=== PATIENT | female | born 1960 | race Caucasian/White ===

== ENCOUNTER → 2017-10-09 10:41 | Outpatient (CLI) | payer OTHER, SELFPAY ==
[2017-10-09 10:50] LABS: Lyme Ab Screen Interpretation REF LAB
[2017-10-09 12:07] LABS: Rheumatoid Factor < 10.0 IU/mL (<15)
[2017-10-09 12:11] LABS: Absolute Lymphocyte Count 2.17 X10^3/ul (0.83-4.51); Absolute Neutrophil Count 2.5 X10^3/uL (2.0-7.7); Basophil# 0.02 X10^3/uL; Basophil% 0.4 % (0-1); Eosinophil# 0.09 X10^3/uL; Eosinophils% 1.8 % (0-5); Hematocrit 44.4 % (37-47); Hemoglobin 14.8 g/dl (12.0-15.0); Lymphocyte # 2.17 X10^3/ul (4.0); Lymphocyte % 42.7 % (19-41); Mean Corp Hgb Conc 33.3 g/gl (32-36); Mean Corpuscular Hgb 28.4 pg (27.0-32.0); Mean Corpuscular Volume 85.2 fL (81-99); Mean Platelet Vol. 10.2 fl (6.2-12.0); Monocyte# 0.29 X10^3/uL; Monocyte% 5.7 % (0-10); Neutrophil % 49.2 % (47-70); Platelet Count 250 K/mm3 (150-450); RBC Distribution Width CV 13.1 % (11.6-14.6); Red Blood Count 5.21 M/mm3 (4.2-5.4); White Blood Count 5.1 K/mm3 (4.4-11.0)
[2017-10-09 12:12] LABS: Erythrocyte Sedimentation Rate 15 mm/hr (0-30); POSITIVE COUNT NO; POSITIVE DIFFERENTIAL NO; POSITIVE MORPHOLOGY NO
[2017-10-10 15:26] LABS: ANTINUCLEAR ANTIBODIES DIRECT Negative (Negative); Lyme Scn Total Ab w/Rflx <0.91 ISR (0.00-0.90)
== END ==
PROVIDERS: Family Provider Family Medicine; PCP Family Medicine; Visit Provider Orthopaedic Surgery
DX: M79.89 Other specified soft tissue disorders (principal)
CPT/HCPCS: 36415; 85025; 85652; 86038; 86140; 86431; 86618

== ENCOUNTER → 2017-10-25 07:55 | Outpatient (CLI) | payer OTHER, SELFPAY ==
--- NOTE | 2017-10-25 07:56 | MRI_ITS ---
STUDY: MRI RIGHT HAND REASON FOR EXAM: Pain at the palmar surface and swelling following surgery for trigger fingers (thumb, index and ring fingers) in June TECHNIQUE: Standardized fat and water weighted pulse sequences were obtained in all 3 orthogonal planes. COMPARISON: Radiographs 09/05/2016. FINDINGS: Normal metacarpals and visualized phalanges without bone edema. Normal carpometacarpal joints. There is a small cyst in the radial aspect of the second metacarpal head. Otherwise, unremarkable metacarpophalangeal joints. Normal interphalangeal joints. There is fluid in the fourth flexor tendon sheath at the level of the distal metacarpal/metacarpophalangeal joint (inversion recovery axial images 17-24). There is a small volume of fluid in the flexor tendon sheaths of the first digit at the level metacarpophalangeal joint (inversion recovery axial image 15). Otherwise, unremarkable flexor and extensor tendons. Normal intrinsic muscles of the hand. MRI/Upper Ext/No Jt/ wo IMPRESSION: Flexor tenosynovitis of the fourth digit. Mild flexor tenosynovitis of the first digit. Electronically Signed: Denny Gimenez MD at 11:49 EDT Tel , Service support ,
== END ==
PROVIDERS: Family Provider Family Medicine; PCP Family Medicine; Visit Provider Orthopaedic Surgery
DX: M79.89 Other specified soft tissue disorders (principal)
CPT/HCPCS: 73218